=== PATIENT | female | born 1925 | race Native Hawaiian/Other Pacific Islander ===

== ENCOUNTER 2016-06-24 15:03 | Inpatient (IN) | payer OTHER ==
[~2016-06-24] VITALS: Ht 154.9 cm; Wt 42.3 kg
[~2016-06-24 15:03] MED LIST: MEGE40SU6 PO; MULTIVITAMI1 PO; UNITH DIRECT88 MCG PO
--- NOTE | 2016-06-24 15:30 | NUR ---
PATIENT ADMITTED DIRECT ADMIT TO ROOM 113. ARRIVED ACCOMPANIED BY DAUGHTERS. PATIENT ALERT ON ARRIVAL, NO SIGNS OF DISTRESS. ADMISSION ORDERS NOTED AND CARRIED OUT.
[2016-06-24 16:17] LABS: PLATELET COUNT 283 K/uL (152-353)
[2016-06-24 16:23] VITALS: BP 150/64; TEMP 97.8; Ht 154.9 cm; Wt 42.3 kg
--- NOTE | 2016-06-24 17:00 | NUR ---
DR. NOYOLA IN TO CONSULT. ORDERS RECEIVED AND CARRIED OUT.
[2016-06-24 17:12] LABS: POTASSIUM 6.1 mmol/L (3.6-5.2)
--- NOTE | 2016-06-24 18:05 | NUR ---
PATIENT TAKEN TO RADIOLOGY VIA WHEELCHAIR FOR CT SCAN.
[2016-06-24 20:00] VITALS: BP 181/79; TEMP 97.9
[2016-06-25] VITALS: BP 177/71; TEMP 98.1
[2016-06-25 00:40] LABS: POTASSIUM 5.8 mmol/L (3.6-5.2)
--- NOTE | 2016-06-25 01:06 | NUR ---
06/25/[address] FORTE NOTIFIED OF RESULTS OF BMP.BUN 79 POTASSIUM 5.8. PREVIOUS BUN 95, POTASSIUM 6.1.PT HAD TOTAL OF 7 STOOLS WITH THE LAST COUPLE OF STOOLS WATERY.NEW ORDERS RECEIVED TO COLLECT LABS IN AM ORDERED.CC
[2016-06-25 04:00] VITALS: BP 180/88; TEMP 98.5
[2016-06-25 07:30] VITALS: BP 181/82; TEMP 98.3
[2016-06-25 07:52] LABS: PLATELET COUNT 229 K/uL (152-353)
[2016-06-25 08:09] LABS: POTASSIUM 4.9 mmol/L (3.6-5.2)
[2016-06-25] MEDS ORDERED: VALSARTAN80 MG PO ×2 (09:51→10:13)
--- NOTE | 2016-06-25 10:56 | NUR ---
[address] Phillips of critical magnesium level (2.6) called from lab to Marine Major RN.
--- NOTE | 2016-06-25 10:57 | NUR ---
[address] Phillips to report critical lab value - Magnesium 2.6. Response noted. No new orders at this time.
[2016-06-25 12:28] VITALS: BP 186/74; TEMP 98.5
--- NOTE | 2016-06-25 14:41 | NUR ---
1420 Dressing to necrotic ulcer on posterior Rt. lower leg changed with chlorohexadine solution (washed, rinsed, and patted dry), 4x4's , and olivier wrap. Two areas of breakdown noted. One area is an eschar covered wound measuring approximately 5 cm long x 3.5 cm. wide. No drainage noted. The second area superior to the one last noted is a stage 2 ulcer 4.5 cm wide x 2 cm long. Dressing is dry and intact with tape. No s/s of edema noted from wrapping.
[2016-06-25 15:45] VITALS: BP 135/84; TEMP 98.6
[2016-06-25 20:00] VITALS: BP 166/81; TEMP 99.1
[2016-06-26 00:05] VITALS: BP 196/76; TEMP 98.3
[2016-06-26 05:39] VITALS: BP 175/89; TEMP 98.9
[2016-06-26 07:41] VITALS: BP 194/87; TEMP 98.4
--- NOTE | 2016-06-26 08:15 | NUR ---
PATIENT SLEEPING IN BED, EASILY AROUSED TO VERBAL STIMULI. FAMILY STATES SHE WILL NOT EAT BREAKFAST THIS AM. MORNING MEDICATIONS ADMINISTERED WITHOUT DIFFICULTY. PATIENT DID DRINK A BREAKFAST SHAKE WELL. INSTRUCTED PATIENT AND FAMILY TO CALL FOR ASSISTANCE IF NEEDED.
--- NOTE | 2016-06-26 11:15 | NUR ---
DRESSING TO RIGHT LOWER LEG REMOVED, WOUNDS CLEANED WITH HIBICLENS AND SALINE AND REDRESSED WITH CLEAN 4X4 AND KERLEX. AREA AROUND WOUND IS PINK. PATIENT TOLERATED WELL. FAMILY REMAINS AT BEDSIDE.
[2016-06-26 11:29] VITALS: BP 162/78; TEMP 98.5
[2016-06-26 14:13] LABS: POTASSIUM 4.6 mmol/L (3.6-5.2)
[2016-06-26 14:35] LABS: PLATELET COUNT 227 K/uL (152-353)
[2016-06-26 16:07] VITALS: BP 184/95; TEMP 98.2
[2016-06-26 19:56] VITALS: BP 182/78; TEMP 99.2
[2016-06-27 00:02] VITALS: BP 150/70; TEMP 98.5
[2016-06-27 04:00] VITALS: BP 144/84; TEMP 98.1
[2016-06-27 08:00] VITALS: BP 138/90; TEMP 98
[2016-06-27 08:55] LABS: POTASSIUM 4.4 mmol/L (3.6-5.2)
[2016-06-27 09:38] LABS: PLATELET COUNT 203 K/uL (152-353)
--- NOTE | 2016-06-27 11:57 | NUR ---
1145 [facility] HERE AT THIS TIME FOR POSSIBLE ADMISSION AFTER DISCHARGE. DR FORTE NOTIFIED AND NEW ORDERS OBTAINED FOR CXR AND TB SKIN TEST. PER DR FORTE REFER PER FAMILY'S REQUEST TO [facility]. 1200 REFERAL MADE AT THIS TIME. INFORMATION GIVEN OT KODY
[2016-06-27 12:00] VITALS: BP 131/85; TEMP 98.6
[2016-06-27 16:00] VITALS: TEMP 98.3
--- NOTE | 2016-06-27 18:14 | NUR ---
1400 [facility] FROM [facility] HERE AT THIS TIME FOR REFERRAL. SPEAKING WITH FAMILY ABOUT ADMISSION 1600 PER [facility] PT WILL BE ADMITTED TO THEM AFTER DISCHARGE FROM HOSP. ALL EQUIPMENT [facility] BE [facility]. MD AWARE. [facility] SPOKE TO FAMILY AGAIN PER MD ORDERS ABOUT FEEDING TUBE. FAMILY DECLINED AGAIN. EXPLAINED IF THEY WAIT TO A LATER TIME OUTCOME COULD BE WORSE PER MD. FAMILY VERBLAIZED UNDERSTANDING AND RISKS OF NOT PLACING PEG TUBE.
[2016-06-27 20:00] VITALS: BP 187/77; TEMP 98.6
[2016-06-28] VITALS: BP 176/67; TEMP 98.3
[2016-06-28 04:00] VITALS: BP 189/74; TEMP 98.3
[2016-06-28 05:37] LABS: PLATELET COUNT 198 K/uL (152-353)
[2016-06-28 06:08] LABS: POTASSIUM 4.4 mmol/L (3.6-5.2)
--- NOTE | 2016-06-28 13:30 | NUR ---
PATIENT'S DRESSING REMOVED WITH SEROUS DRAINAGE NOTED ON DRESSING. ULCER CLOSED TO BACK OF KNEE MEASURED AT 4 CM X 3 CM X 0 CM. LOWER ULCER MEASURED 3 CM X 2 1/2 CM X 0 CM IN DEPTH. AREAS CLEANED WITH HIBICLENS AND DRESSED WITH TELFA, 4X4'S, AND ELKE. PATIENT TOLERATED WELL.
--- NOTE | 2016-06-28 17:00 | NUR ---
PATIENT'S IV REMOVED WITH CATHETER TIP INTACT. NO REDNESS OR SWELLING NOTED. PATIENT TOLERATED WELL. FAMILY GIVEN DISCHARGE INSTRUCTIONS AND VERBALIZED UNDERSTANDING. PATIENT DISCHARGED HOME AT THIS TIME.
== END 2016-06-28 17:35 | disposition home health service (06) | DRG 593 ==
LOC: MED/SURG 15:03
PROVIDERS: Family Medicine; ADMIT Nurse Practitioner Family
PROC: 30253N1 (ICD-10-PCS; principal; 2016-06-26)
DX: L97.909 Non-pressure chronic ulcer of unspecified part of unspecified lower leg with unspecified severity (principal); L03.116 Cellulitis of left lower limb; E46 Unspecified protein-calorie malnutrition; F03.90 Unspecified dementia, unspecified severity, without behavioral disturbance, psychotic disturbance, mood disturbance, and anxiety; E03.8 Other specified hypothyroidism; I10 Essential (primary) hypertension; D64.89 Other specified anemias; W19.XXXA Unspecified fall, initial encounter; E13.43 Other specified diabetes mellitus with diabetic autonomic (poly)neuropathy; N28.9 Disorder of kidney and ureter, unspecified; R54 Age-related physical debility; S40.022A Contusion of left upper arm, initial encounter; S40.021A Contusion of right upper arm, initial encounter
CPT/HCPCS: 36415; 36591; 36600; 80048; 80053; 81000; 82607; 82746; 82805; 83735; 83880; 84436; 84443; 84479; 85027; 86850; 86900; 86901; 86922; 87040; 96365; 96366; 96367; J0712; J3490; P9016